=== PATIENT | male | born 1955 | race Hispanic/Latino ===

== ENCOUNTER 2023-11-24 19:18 | Emergency (ER) | payer BC, OTHER ==
[2023-11-24] MEDS ORDERED: TDAP (DIPHTH,PERTUSS(ACELL),TET VAC) 0.5 ML VIAL IMVAC ONE (20:11)
--- NOTE | 2023-11-24 20:45 | RAD REPORT ---
EXAM DESCRIPTION: RAD - Wrist Left 3 View - 11/24/2023 8:11 pm CLINICAL HISTORY: r/o fb COMPARISON: No comparisons TECHNIQUE: Left wrist, 3 views. FINDINGS: No acute fracture. There is no dislocation or periosteal reaction noted. No suspicious bon y finding. Soft tissue swelling and irregularity along the lateral aspect of the wrist, with few smal l metallic radiodensities, 1 of which closely approximates the cortex of the distal radius. IMPRESSION: Soft tissue irregularities and metallic radiodensities suggesting foreign bodies along t he lateral aspect of the wrist as above. No acute fractures.
--- NOTE | 2023-11-24 21:22 | RAD REPORT ---
EXAM DESCRIPTION: Eduardo Single View11/24/2023 8:55 pm CLINICAL HISTORY: COUGH COMPARISON: No comparisons TECHNIQUE: Portable AP view of the chest. FINDINGS: The lungs are clear. No pneumothorax or effusion. The cardiomediastinal contours are unre markable. IMPRESSION: No acute cardiopulmonary process.
--- NOTE | 2023-11-24 21:24 | EDPHYS ---
Physician Documentation [facility] Name: Benoit Pan Age: 68 yrs Sex: Male : 1955 Arrival Date: 11/24/2023 Time: 19:18 Bed 19 Private MD: ED Physician Huber Lemus HPI: 11/23 21:35 This 68 yrs old Male presents to ER via Ambulatory with complaints of kb Laceration - to wrist. 21:35 Pt is a 68 year old male who presents for puncture wound with bleeding to right wrist kb that occurred just travel pta when a piece of scrap metal hit him. Also reports cough and congestion for a week without fever that he wants to be evaluated for since he is here. . Historical: - Allergies: 19:26 hydrocodone; mb9 - Home Meds: 19:26 amlodipine oral [Active]; Atenolol Oral [Active]; atorvastatin oral [Active]; mb9 - PMHx: 19:26 Hypertensive disorder; mb9 - PSHx: 19:26 None; mb9 - Immunization history:: Adult Immunizations up to date. - Infectious Disease History:: Denies. - Social history:: Smoking status: Patient denies any tobacco usage or history of. ROS: 21:34 Constitutional: As per HPI kb Exam: 21:34 Constitutional: This is a well developed, well nourished patient who is awake, alert, kb and in no acute distress. Head/Face: Normocephalic, atraumatic. ENT: Moist Mucous membranes Cardiovascular: Regular rate Respiratory: Respirations even and unlabored. No increased work of breathing. Talking in full sentences Abdomen/GI: Soft, non-tender. No distention MS/ Extremity: Pulses equal, no cyanosis. Neurovascular intact. Full, normal range of motion. Neuro: Awake and alert, GCS 15, oriented to person, place, time, and situation. Moves all extremities. Normal gait. 21:34 Skin: injury, puncture(s), that are superficial, of the lateral aspect of left wrist, Vital Signs: 19:28 BP 136 / 65; Pulse 71; Resp 18; Temp 98.1; Pulse Ox 100% ; Weight 85.73 kg; Height 5 mb9 ft. 6 in. ; 20:35 BP 119 / 67; Pulse 56; Pulse Ox 96% on R/A; Pain 0/10; tm6 21:47 BP 131 / 78; Pulse 63; Resp 19; Temp 97.3(TE); Pulse Ox 98% on R/A; Pain 0/10; tm6 19:28 Body Mass Index 30.51 (85.73 kg, 167.64 cm) mb9 20:35 Pain Scale: Adult tm6 21:47 Pain Scale: Adult tm6 MDM: 19:24 Patient medically screened. kb 21:34 Differential diagnosis: laceration, fb, puncture. Data reviewed: vital signs, nurses kb notes. Historians other than the Patient: Spouse/Significant Other: . Counseling: I had a detailed discussion with the patient and/or guardian regarding the historical points, exam findings, and any diagnostic results supporting the discharge/admit diagnosis, radiology results, the need for outpatient follow up, a family practitioner, to return to the emergency department if symptoms worsen or persist or if there are any questions or concerns that arise at home. 11/23 19:25 Order name: Wrist Left (3 View) XRAY; Complete Time: 20:48 kb 11/23 20:42 Order name: Chest Single View XRAY; Complete Time: 21:23 kb 11/23 19:25 Order name: Wound Care; Complete Time: 20:09 kb Administered Medications: 20:18 Drug: Boostrix Tdap IM 0.5 ml IM once; as a single dose Route: IM; Site: left deltoid; tm6 21:47 Drug: Tessalon Perle PO 100 mg PO once Route: PO; tm6 Disposition Summary: 11/24/23 21:24 Discharge Ordered Notes: Location: Home kb Condition: Stable kb Diagnosis - Puncture wound with foreign body of right wrist, initial encounter kb - Cough kb Followup: kb - With: Emergency Department - When: As needed - Reason: Worsening of condition Followup: kb - With: Private Physician - When: 2 - 3 days - Reason: Recheck today's complaints, Continuance of care, Re-evaluation by your physician Discharge Instructions: - Discharge Summary Sheet kb - Puncture Wound, [id number] kb - Cough, Adult, [id number] kb - Skin Foreign Body kb Forms: - Medication Reconciliation Form kb - Thank You Letter kb - Antibiotic Education kb - Prescription Opioid Use kb - Patient Portal Instructions kb - Leadership Thank You Letter kb Prescriptions: - Cephalexin 500 mg Oral Capsule - take 1 capsule ORAL route every 8 hours for 10 days; 30 capsule; Refills: 0, kb Product Selection Permitted - Tessalon Perles 100 mg Oral Capsule - take 1 capsule ORAL route every 8 hours As needed; 15 capsule; Refills: 0, kb Product Selection Permitted Signatures: Dispatcher [employer] EDNafisa Vargas, Ly Velasco RN RN mb9 Bob Black RN RN tm6 Corrections: (The following items were deleted from the chart) 19:25 19:25 Wrist Left 3 View+[email or web address] ordered. YESSICA JUAN
--- NOTE | 2023-11-24 21:24 | ER ---
Nurse's Notes [facility] Name: Benoit Pan Age: 68 yrs Sex: Male : 1955 Arrival Date: 11/24/2023 Time: 19:18 Bed 19 Private MD: Diagnosis: Puncture wound with foreign body of right wrist, initial encounter;Cough Presentation: 11/23 19:28 Chief complaint: Patient states: "About an hour ago, metal hit my left wrist and cut mb9 it. It was squirting blood earlier but now stopped." Pt is not on blood thinners. Coronavirus screen: Vaccine status: Patient reports being unvaccinated. Ebola Screen: No symptoms or risks identified at this time. Complicating Factors: Glass or an other foreign body is present in the wound. Initial Sepsis Screen: Does the patient meet any 2 criteria? No. Patient's initial sepsis screen is negative. Does the patient have a suspected source of infection? No. Patient's initial sepsis screen is negative. Risk Assessment: Do you want to hurt yourself or someone else? Patient reports no desire to harm self or others. Onset of symptoms was November 24, 2023. 19:28 Acuity: AUTUMN 4 mb9 19:28 Method Of Arrival: Ambulatory mb9 Historical: - Allergies: 19:26 hydrocodone; mb9 - Home Meds: 19:26 amlodipine oral [Active]; Atenolol Oral [Active]; atorvastatin oral [Active]; mb9 - PMHx: 19:26 Hypertensive disorder; mb9 - PSHx: 19:26 None; mb9 - Immunization history:: Adult Immunizations up to date. - Infectious Disease History:: Denies. - Social history:: Smoking status: Patient denies any tobacco usage or history of. Screenin:32 [facility] ED Fall Risk Assessment (Adult) History of falling in the last 3 months, tm6 including since admission No falls in past 3 months (0 pts) Confusion or Disorientation No (0 pts) Intoxicated or Sedated No (0 pts) Impaired Gait No (0 pts) Mobility Assist Device Used No (0 pt) Altered Elimination No (0 pt) Score/Fall Risk Level 0 - 2 = Low Risk Oriented to surroundings, Maintained a safe environment. Abuse screen: Denies threats or abuse. Denies injuries from another. Nutritional screening: No deficits noted. Tuberculosis screening: No symptoms or risk factors identified. Assessment: 19:29 General: Appears in no apparent distress. Behavior is calm, cooperative. Pain: Denies tm6 pain. Neuro: Level of Consciousness is awake, alert, obeys commands, Oriented to person, place, time, situation. Cardiovascular: Patient's skin is warm and dry. Respiratory: Airway is patent Respiratory effort is even, unlabored, Respiratory pattern is regular, symmetrical. GI: No signs and/or symptoms were reported involving the gastrointestinal system. Abdomen is round non-distended. : No signs and/or symptoms were reported regarding the genitourinary system. EENT: No signs and/or symptoms were reported regarding the EENT system. Derm: Wound noted lateral aspect of left wrist Wound is small puncture on left wrist. Musculoskeletal: Range of motion: intact in all extremities, Swelling present in lateral aspect of left wrist. Injury Description: Puncture sustained to lateral aspect of left wrist is superficial. 20:36 Reassessment: Patient and/or family updated on plan of care and expected duration. Pain tm6 level reassessed. Patient is alert, oriented x 3, equal unlabored respirations, skin warm/dry/pink. 21:47 Reassessment: Patient and/or family updated on plan of care and expected duration. Pain tm6 level reassessed. Patient is alert, oriented x 3, equal unlabored respirations, skin warm/dry/pink. Vital Signs: 19:28 BP 136 / 65; Pulse 71; Resp 18; Temp 98.1; Pulse Ox 100% ; Weight 85.73 kg; Height 5 mb9 ft. 6 in. ; 20:35 BP 119 / 67; Pulse 56; Pulse Ox 96% on R/A; Pain 0/10; tm6 21:47 BP 131 / 78; Pulse 63; Resp 19; Temp 97.3(TE); Pulse Ox 98% on R/A; Pain 0/10; tm6 19:28 Body Mass Index 30.51 (85.73 kg, 167.64 cm) mb9 20:35 Pain Scale: Adult tm6 21:47 Pain Scale: Adult tm6 ED Course: 19:19 Patient arrived in ED. im 19:24 Nafisa Jane FNP-C [facility]. kb 19:24 Huber Lemus MD is Attending Physician. kb 19:26 Arm band placed on. mb9 19:29 Bob Black, RN is Primary Nurse. tm6 19:30 Triage completed. mb9 19:32 Patient has correct armband on for positive identification. Placed in gown. Bed in low tm6 position. Call light in reach. Side rails up X2. Provided Education on: plan of care. Client placed on continuous cardiac and pulse oximetry monitoring. NIBP monitoring applied. Pulse ox on. NIBP on. Door closed. Noise minimized. 20:12 Wrist Left (3 View) XRAY In Process Unspecified. EDMS 20:57 Chest Single View XRAY In Process Unspecified. EDMS 21:48 No provider procedures requiring assistance completed. Patient did not have IV access tm6 during this emergency room visit. Administered Medications: 20:18 Drug: Boostrix Tdap IM 0.5 ml IM once; as a single dose Route: IM; Site: left deltoid; tm6 21:47 Drug: Tessalon Perle PO 100 mg PO once Route: PO; tm6 Medication: 19:32 VIS not applicable for this client. tm6 Outcome: 21:24 Discharge ordered by . kb 21:48 Discharged to home ambulatory, with family, tm6 21:48 Condition: stable 21:48 Discharge instructions given to patient, family, Instructed on discharge instructions, follow up and referral plans. medication usage, Demonstrated understanding of instructions, follow-up care, medications, Prescriptions given X 2, 21:48 Patient left the ED. tm6 Signatures: Dispatcher [employer] EDCA Nafisa Jane, ARIANA ROMERO-Ly Herrera, RN RN Maisha Bocanegra Bob Black, RN RN tm6
[2023-11-24] MEDS ORDERED: BENZONATATE 100 MG CAP PO ONE (21:35)
[2023-11-24 22:14] VITALS: BP 131/78; TEMP 97.3; O2SAT 98
== END 2023-11-24 21:48 | disposition home or self-care (01) ==
LOC: ER 19:18
DX: S61.532A Puncture wound without foreign body of left wrist, initial encounter (principal); R05.9 Cough, unspecified; Z88.5 Allergy status to narcotic agent
CPT/HCPCS: 71045